=== PATIENT | female | born 1990 | race Caucasian/White ===

== ENCOUNTER 2017-04-04 21:27 | Emergency (ER) | payer MEDICAID ==
[2017-04-04 21:49] VITALS: BP 125/63
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
[2017-04-04] MEDS: Penicillin V Potassium 250 MG Tab ONE ×3 (22:36→22:44)
[2017-04-04] MEDS: Penicillin V Potassium 500 MG Tab PO ONE ×2 (22:36→22:43)
[2017-04-04] MEDS ORDERED: Penicillin V Potassium 250 MG Tab PO SCH (22:45)
== END 2017-04-04 22:45 | disposition home or self-care (01) ==
LOC: FB.ED 21:27
DX: K04.7 Periapical abscess without sinus (principal); F17.210 Nicotine dependence, cigarettes, uncomplicated; Z79.899 Other long term (current) drug therapy
CPT/HCPCS: 99282; A9270

== ENCOUNTER 2017-08-24 19:11 | Emergency (ER) | payer MEDICAID ==
[2017-08-24 19:52] VITALS: BP 122/70
[2017-08-24] MEDS ORDERED: Sodium Chloride 0.9% 1,000 ML IV ONE (20:00)
[2017-08-24] MEDS ORDERED: Ketorolac 30 MG/ML SDV IVPUSH ONE (20:04)
[2017-08-24] MEDS ORDERED: diphenhydrAMINE 50 MG/ML SDV IVPUSH ONE (20:04)
[2017-08-24] MEDS ORDERED: Acetaminophen 1,000 MG in Premix Bag 1 BAG IV ONE (20:04)
[2017-08-24] MEDS ORDERED: Metoclopramide 10 MG/2 ML SDV IVPUSH ONE (20:05)
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
== END 2017-08-24 22:00 | disposition home or self-care (01) ==
LOC: FB.ED 19:11
DX: G43.909 Migraine, unspecified, not intractable, without status migrainosus (principal); F17.210 Nicotine dependence, cigarettes, uncomplicated
CPT/HCPCS: 96361; 96365; 96375; 99283; J0131; J1200; J1885; J2765; J7040

== ENCOUNTER 2018-02-19 20:51 | Emergency (ER) | payer MEDICAID ==
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
[2018-02-19 21:18] VITALS: BP 118/62
== END 2018-02-19 21:15 | disposition home or self-care (01) ==
LOC: FB.ED 20:51
DX: J06.9 Acute upper respiratory infection, unspecified (principal); H69.92 Unspecified Eustachian tube disorder, left ear; F17.210 Nicotine dependence, cigarettes, uncomplicated; Z91.018 Allergy to other foods; Z91.048 Other nonmedicinal substance allergy status
CPT/HCPCS: 99282

== ENCOUNTER 2018-02-21 23:02 | Emergency (ER) | payer MEDICAID ==
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
[2018-02-22] MEDS ORDERED: Acetaminophen Soln 650 MG/20.3 ML UD Cup PO ONE (00:14)
[2018-02-22] MEDS ORDERED: Acetaminophen 325 MG Tab PO ONE (00:17)
[2018-02-22 00:54] VITALS: BP 129/60
== END 2018-02-22 00:50 | disposition home or self-care (01) ==
LOC: FB.ED 23:02
DX: O99.89 Other specified diseases and conditions complicating pregnancy, childbirth and the puerperium (principal); R10.32 Left lower quadrant pain; O99.331 Smoking (tobacco) complicating pregnancy, first trimester; F17.210 Nicotine dependence, cigarettes, uncomplicated; Z3A.08 8 weeks gestation of pregnancy; Z91.018 Allergy to other foods; Z91.09 Other allergy status, other than to drugs and biological substances
CPT/HCPCS: 36415; 80048; 81001; 84702; 85025; 99284; A9270